=== PATIENT | female | born 2000 | race Caucasian/White ===

== ENCOUNTER 2020-10-08 23:12 | Emergency (ER) | payer MEDICAID, OTHER ==
[~2020-10-08] VITALS: Ht 162.6 cm; Wt 90.7 kg
[2020-10-09 00:53] VITALS: BP 132/86
[2020-10-09 01:17] LABS: BILIRUBIN,URINE NEGATIVE (NEGATIVE); UA COLOR YELLOW; UROBILINOGEN,URINE 0.2 E.U./dL (0.2)
--- NOTE | 2020-10-09 01:33 | ER.PDOC ---
General Chief Complaint: Female Urogenital Problems Stated Complaint: UTERINE CRAMPING Time seen by MD: 01:28 Source: patient Exam Limitations: no limitations History of Present Illness Initial Comments Uterine cramping for 1 week. No vagina discharge. No fever or chills. Patient has an IUD in place. Severity/Quality: moderate, cramping Location of Pain: abdominal pain, pelvic pain Associated Symptoms: abdominal pain Past Medical History Medical History: other Surgical History: other Family History Significant Family History: no pertinent family hx Social History Smoking: less than 1 pack/day Alcohol Use: none Drug Use: none Review of Systems Constitutional: no symptoms reported Respiratory: no symptoms reported Cardiovascular: no symptoms reported Gastrointestinal: see HPI Genitourinary: see HPI Musculoskeletal: no symptoms reported All Other Systems: Reviewed and Negative Physical Exam General Appearance: No Apparent Distress, WD/WN Neck: nml inspection, non-tender Cardiovascular/Respiratory: Regular Rate, Rhythm, No M/R/G, Normal Peripheral Pulses, No JVD, Normal Breath Sounds, No Respiratory Distress Abdomen: Normal Bowel Sounds, Non Tender, Soft, No Organomegaly, Tenderness (lower abdomen) Back: nml inspection Extremities: Normal Range of Motion, Non-Tender, Normal Inspection, No Pedal Edema, No Calf Tenderness, Normal Capillary Refill 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, No Motor/Sensory Deficits, Alert, Normal Mood/Affect, Oriented x 3 Skin: Normal Color, Warm/Dry Lymphatic: No Adenopathy Results/Orders Results/Orders Orders - JONG PHAM MD Urinalysis (10/09/20 00:59) Hcg Urine (10/09/20 00:59) Cbc With Auto Diff (10/09/20 01:26) Comprehensive Metabolic Panel (10/09/20 01:26) Ct Abd/Pelvis Wo Iv Contrast (10/09/20 01:26) Vital Signs Date Time Temp Pulse Resp B/P (MAP) Pulse Ox O2 Delivery O2 Flow Rate FiO2 10/09/20 01:53 86 18 126/72 (90) 98 Room Air 10/09/20 00:53 98.7 102 18 10/09/20 00:53 98.7 102 18 132/86 (101) 100 Room Air 10/09/20 00:53 98.7 102 18 100 Laboratory Tests Test 10/01/20 23:17 10/08/20 23:17 Urine Collection Type UNKNOWN Urine Color YELLOW Urine Appearance CLEAR Urine Bilirubin NEGATIVE (NEGATIVE) Urine Ketones NEGATIVE (NEGATIVE) Urine Specific [employer] >=1.030 (1.005-1.030) Urine pH 6.5 (4.5-8.0) Urine Protein NEGATIVE (NEGATIVE) Urine Urobilinogen 0.2 E.U./dL (0.2) Urine Nitrate NEGATIVE (NEGATIVE) Urine Leukocyte Esterase NEGATIVE (NEGATIVE) Urine Glucose (Auto)(UA) NEGATIVE (NEGATIVE) Urine Blood SMALL (NEGATIVE) H Urine RBC 5-10 RBC/HPF (NONE SEEN) H Urine WBC NONE SEEN WBC/HPF (0-2) Urine Squamous Epithelial Cells RARE #/HPF (FEW) Urine Bacteria NONE SEEN (NONE SEEN) Urine HCG, Qualitative NEGATIVE (NEGATIVE) Progress Progress CT abdomen/pelvis: Subtle stranding of the central mesenteric fat with innumerable small lymph nodes, more than to be expected, could suggest mesenteric panniculitis or adenitis in the appropriate clinical setting. 2. Under distended gallbladder. Normal appendix. No hydronephrosis. 3. Other findings as above. Patient refused labs because she did not want to wait. Discussed the CT report with her. She fully understands and told me she will follow-up with her PCP. She signed and left AGAINST MEDICAL ADVICE. She understands that leaving AGAINST MEDICAL ADVICE may result in worsening pain and . Her pain is more in the pelvic area and comes as cramps ruling out mesenteric adenitis. ER DEPART Departure Time of Disposition: 02:56 Disposition: 07 LEFT AGAINST MEDICAL ADVICE Impression: Primary Impression: Pelvic pain Condition: Against Medical Advice Referrals: PCP,UNKNOWN (PCP) PRIMARY CARE PROVIDER Duration or Time Spent with Pa: 30 min JONG PHAM MD Oct 09, 2020 01:33
[2020-10-09 01:53] VITALS: BP 126/72
--- NOTE | 2020-10-09 02:40 | DIREP ---
PROCEDURE:CT ABD/PELVIS WITHOUT CONTRAST TECHNIQUE:No oral contrast was given. Axial cuts were obtained through the abdomen and pelvis without IV contrast. The images were viewed at lung and soft tissue settings. Sagittal and coronal reconstructions are provided. COMPARISON:None. INDICATIONS:Lower abdominal pain FINDINGS: LOWER CHEST:The lung bases are clear. LIVER:Normal. BILIARY:The gallbladder is underdistended limiting evaluation. PANCREAS:Normal. SPLEEN:Normal. URINARY TRACT:Normal. ADRENALS:Normal. AORTA/VASCULAR:Normal. RETROPERITONEUM:Normal. BOWEL/MESENTERY:No bowel thickening or obstruction. Normal appendix. Subtle stranding of the central mesenteric fat with innumerable small lymph nodes, more than to be expected, could suggest mesenteric panniculitis or adenitis in the appropriate clinical setting. ABDOMINAL WALL:Normal PELVIS:Left adnexal cyst measuring 2.1 cm. IUD in the uterus. BONES:Normal. OTHER:Study is limited without oral or IV contrast. CONCLUSION: 1. Subtle stranding of the central mesenteric fat with innumerable small lymph nodes, more than to be expected, could suggest mesenteric panniculitis or adenitis in the appropriate clinical setting. 2. Under distended gallbladder. Normal appendix. No hydronephrosis. 3. Other findings as above. Dictated by: Gabriel Brantley MD on 10/09/2020 at 02:30 AM
== END 2020-10-09 02:52 | disposition left against medical advice (07) ==
LOC: ER 23:12
DX: R10.2 Pelvic and perineal pain (principal); F17.210 Nicotine dependence, cigarettes, uncomplicated
CPT/HCPCS: 74176; 81001; 81025; 99284